=== PATIENT | female | born 1980 | race Caucasian/White ===

== ENCOUNTER 2017-04-01 16:06 | Emergency (ER) | payer OTHER ==
[2017-04-01 16:29] VITALS: BP 124/54; PULSE 60; TEMP 98.2; BMI 24.7
--- NOTE | 2017-04-01 18:59 | PDOC ---
History of Present Illness - General Chief Complaint: Headache Stated Complaint: HEADACHE Time Seen by Provider: 04/01/17 18:10 History Source: Patient Exam Limitations: No Limitations - History of Present Illness Initial Comments: 04/01/17 18:50 Patient is here with complaints of frontal and ethmoid sinus headache. Denies fever, denies any drainage from nose but has fullness and congestion. Has taken only Tylenol for relief of pain, and was concerned because it has not resolved. Denies knowledge of pollen ALLERGIES but thinks may have some relationship. Denies any runny nose or drainage from nose that's purulent, no cough, no sore throat pain, no one at home is sick. Is not a smoker Timing/Duration: reports: waxing and waning Severity: Yes: moderate Associated Symptoms: reports: denies symptoms, fever/chills Past History - Travel Traveled outside of the country in the last 30 days: No Close contact w/someone who was outside of country & ill: No - Past Medical History Allergies/Adverse Reactions: Allergies Allergy/AdvReac Type Severity Reaction Status Date / Time No Known Drug Allergies Allergy Verified 04/01/17 16:25 Home Medications: Ambulatory Orders Pnv95/Iron Fum/Folic Acid [ Caplet] 1 each PO DAILY 01/14/16 Ibuprofen [Motrin -] 600 mg PO TID #21 tablet 01/17/16 - Surgical History Abdominal Surgery: Yes (r/o Fibroid) - Reproductive History (#): 4 Para: 2 Therapeutic (s) & number: Yes (X 1) - Immunization History Immunization Up to Date: No - Psycho/Social/Smoking Cessation Hx Anxiety: No Suicidal Ideation: No Smoking Status: No Smoking History: Never smoked Have you smoked in the past 12 months: No Number of Cigarettes Smoked Daily: 0 Information on smoking cessation initiated: No Hx Alcohol Use: No Drug/Substance Use Hx: No Substance Use Type: Alcohol Hx Substance Use Treatment: No Review of Systems - Review of Systems Able to Perform ROS?: Yes Is the patient limited Belarusian proficient: Yes Constitutional: Yes: Symptoms Reported, See HPI, Malaise HEENTM: Yes: Symptoms Reported, See HPI, Eye Pain. No: Blurred Vision, Tearing Respiratory: Yes: Symptoms reported, See HPI : No: Symptoms Reported Musculoskeletal: Yes: Symptoms Reported All Other Systems: Reviewed and Negative *Physical Exam - Vital Signs Last Vital Signs Temp Pulse Resp BP Pulse Ox 98.2 F 60 18 124/54 100 04/01/17 16:27 04/01/17 16:27 04/01/17 16:27 04/01/17 16:27 04/01/17 16:27 - Physical Exam General Appearance: Yes: Nourished, Appropriately Dressed, Apparent Distress HEENT: positive: ALEX, Normal ENT Inspection, TMs Normal (ingested but landmarks easily visualized). negative: Pharynx Normal Neck: positive: Tender, Supple Respiratory/Chest: positive: Lungs Clear, Normal Breath Sounds Cardiovascular: positive: Regular Rate Gastrointestinal/Abdominal: positive: Soft. negative: Tender Musculoskeletal: positive: Normal Inspection Extremity: positive: Normal Capillary Refill, Normal Inspection Integumentary: positive: Normal Color, Dry Neurologic: positive: anime designer II-XII NML intact, Fully Oriented, Alert, Normal Mood/ Affect, Normal Response, Motor Strength 5/5 Progress Note - Progress Note Progress Note: Sinus congestion, no evidence of infection. Will treat with decongestants and antihistamines as is probably related to significant pollen currently. Will recommend follow-up with PMD or return for fevers, purulent drainage or worsened pain *DC/Admit/Observation/Transfer Diagnosis at time of Disposition: Allergic rhinitis Qualifiers: Allergic rhinitis trigger: other Allergic rhinitis seasonality: unspecified seasonality Qualified Code(s): J30.89 - Other allergic rhinitis - Discharge Dispostion Disposition: HOME Condition at time of disposition: Stable Admit: No - Patient Instructions Printed Discharge Instructions: DI for Allergic Rhinitis Additional Instructions: Rest, drink lots of fluids: Teas, water, soups Saltwater gargles. Consider humidifier in room at night Steamy showers/seem to face break up mucus Avoid contact with allergens, exposure to pollens, close windows on a windy day Lots of handwashing and good hygiene Continue [id number] medications for symptomatic relief- may use allergic eyedrops for itching I Continue antihistamines daily until pollen season is over; Zyrtec, Claritin, Thuy during the daytime and Benadryl at nighttime as will make sleepy Tylenol or Motrin for fever and pain Followup with private physician in one to 2 days as needed Consider following up with an taker off drying kiln/catalogue librarian for skin testing and possible allergy shots Return to emergency department for worsened symptoms, fevers, dehydration - Post Discharge Activity Work/School Note: Back to Work
== END 2017-04-01 19:43 | disposition home or self-care (01) ==
LOC: JERFT 16:06
DX: J30.89 Other allergic rhinitis (principal)
CPT/HCPCS: 84703; 99281-25

== ENCOUNTER 2017-06-08 10:03 | Emergency (ER) | payer OTHER ==
[2017-06-08 10:08] VITALS: BP 119/74; PULSE 87; TEMP 98.3; BMI 24.7
[2017-06-08 11:01] LABS: URINE APPEARANCE CLEAR; URINE BILIRUBIN NEGATIVE (NEGATIVE); URINE BLOOD NEGATIVE (NEGATIVE); URINE COLOR YELLOW; URINE GLUCOSE (UA) NEGATIVE (NEGATIVE); URINE KETONE NEGATIVE (NEGATIVE); URINE LEUK ESTERASE NEGATIVE (NEGATIVE); URINE NITRITE NEGATIVE (NEGATIVE); URINE PROTEIN NEGATIVE (NEGATIVE); URINE UROBILINOGEN NEGATIVE mg/dL (0.2-1.0)
--- NOTE | 2017-06-08 11:37 | PDOC ---
History of Present Illness - General Chief Complaint: Sore Throat Stated Complaint: THROAT PAIN (11 WKS ) Time Seen by Provider: 06/08/17 10:09 History Source: Patient Exam Limitations: No Limitations - History of Present Illness Initial Comments: 06/08/17 11:24 Patient is a 36 year old female, no significant medical history currently 11 weeks states that she has cough and cold-like symptoms, sore throat, mucus and phlegm, nasal congestion. Patient is afebrile. Denies fever. Past Medical History: Denies. Allergies: No known allergies Medications: vitamins Family History: Non-contributory Social History: Denies smoking, alcohol use, or IVDU Vital signs on arrival are notable for pulse of 96. Review of Systems GENERAL/CONSTITUTIONAL: No fever or chills. No weakness. No weight change. HEAD, EYES, EARS, NOSE AND THROAT: No change in vision. No ear pain or discharge. Sore throat. CARDIOVASCULAR: No chest pain or shortness of breath. RESPIRATORY: Nonproductive cough, no wheezing, or hemoptysis. GASTROINTESTINAL: No nausea, vomiting, diarrhea or constipation. No rectal bleeding. GENITOURINARY: No dysuria, frequency, or change in urination. MUSCULOSKELETAL: No joint or muscle swelling or pain. No neck or back pain. SKIN AND BREASTS: No rash or easy bruising. NEUROLOGIC: No headache, vertigo, loss of consciousness, or loss of sensation. PSYCHIATRIC: No depression or anxiety. ENDOCRINE: No increased thirst. No abnormal weight change. HEMATOLOGIC/LYMPHATIC: No anemia, easy bleeding, or history of blood clots. ALLERGIC/IMMUNOLOGIC: No hives or skin allergy. No latex allergy. Physical Exam: GENERAL: The patient is awake, alert, and fully oriented, in no acute distress. EYES: Pupils equal, round and reactive to light, extraocular movements intact, sclera anicteric, conjunctiva clear. ENT: Ears normal, nares patent, oropharynx clear without exudates. Moist mucous membranes. No uvula deviation NECK: Normal range of motion, supple without lymphadenopathy, JVD, or masses. LUNGS: Breath sounds equal, clear to auscultation bilaterally. No wheezes, and no crackles. HEART: Regular rate and rhythm, normal S1 and S2 without murmur, rub or gallop. ABDOMEN: Soft, nontender, normoactive bowel sounds. No guarding, no rebound. No masses. No bruising or abrasions MUSCULOSKELETAL: Normal range of motion, no edema. No clubbing or cyanosis. No cords, erythema, or tenderness. No CVA Tenderness with fist. NEUROLOGICAL: Cranial nerves II through XII grossly intact. Normal speech, normal gait. SKIN: Warm, Dry, normal turgor, no rashes or lesions noted. Past History - Past Medical History Allergies/Adverse Reactions: Allergies Allergy/AdvReac Type Severity Reaction Status Date / Time No Known Drug Allergies Allergy Verified 06/08/17 10:08 - Surgical History Abdominal Surgery: Yes (r/o Fibroid) - Reproductive History (#): 4 Para: 2 Therapeutic (s) & number: Yes (X 1) - Immunization History Immunization Up to Date: No - Psycho/Social/Smoking Cessation Hx Anxiety: No Suicidal Ideation: No Smoking Status: No Smoking History: Never smoked Have you smoked in the past 12 months: No Number of Cigarettes Smoked Daily: 0 Information on smoking cessation initiated: No Hx Alcohol Use: No Drug/Substance Use Hx: No Substance Use Type: Alcohol Hx Substance Use Treatment: No *Physical Exam - Vital Signs Last Vital Signs Temp Pulse Resp BP Pulse Ox 98.3 F 87 18 119/74 99 06/08/17 10:05 06/08/17 10:05 06/08/17 10:05 06/08/17 10:05 06/08/17 10:05 ED Treatment Course - ADDITIONAL ORDERS Additional order review: Laboratory Results 06/08/17 10:00 Urine Color Yellow Urine Appearance Clear Urine pH 5.0 D Urine Protein Negative Urine Glucose (UA) Negative Urine Ketones Negative Urine Blood Negative Urine Nitrite Negative Urine Bilirubin Negative Urine Urobilinogen Negative Ur Leukocyte Esterase Negative Medical Decision Making - Medical Decision Making 06/08/17 12:39 A/P: Patient here for evaluation of cough, sore throat, cough worse at night when she is trying to go to sleep. Rapid strep sent, patient has been afebrile. Rapid strep sent. Urine analysis sent. Patient was complaining of feeling febrile last evening however no urinary complaints. No vaginal discharge , no abdominal pain. No vaginal bleeding. Rapid strep is negative, UA is unremarkable. Laboratory Results - last 24 hr 06/08/17 10:00 Urine Color Yellow Urine Appearance Clear Urine pH 5.0 D Urine Protein Negative Urine Glucose (UA) Negative Urine Ketones Negative Urine Blood Negative Urine Nitrite Negative Urine Bilirubin Negative Urine Urobilinogen Negative Ur Leukocyte Esterase Negative Explained to patient she has common cold-like symptoms, even though she has symptoms greater than 1 week she states it appears to be getting better however cough still remains at night. Patient is nonseptic appearing, explained to patient that viral illness may take time to go away if any fever, increased productive cough, or any other concerns patient to return to ER as of now we will treat with supportive care. Increase fluids. May take Benadryl at night to decrease secretions and cough. Follow up with PMD tomorrow. Lungs are clear on reassessment O2 sats are 100% on room air. I discussed the physical exam findings, ancillary test results and final diagnoses with the patient. I answered all of the patient's questions. The patient was satisfied with the care received and felt comfortable with the discharge plan and treatment plan. The patient will call to arrange follow-up and will return to the Emergency Department with any new, persistent or worsening symptoms. *DC/Admit/Observation/Transfer Diagnosis at time of Disposition: Common cold - Discharge Dispostion Disposition: HOME Condition at time of disposition: Good Admit: No - Referrals Referrals: Pancho Omer [Primary Care Provider] - - Patient Instructions Printed Discharge Instructions: DI for Common Cold, Common Cold (Alternative Therapy) Additional Instructions: Por favor, aumente los lquidos para prevenir la deshidratacin. Los resultados de coleman laboratorio son negativos. Si los sntomas persisten lopez alexsandra semana, por favor, siga pu con MD Si alguna fiebre, tos productiva o alguna otra preocupacin regresan a la yazmin de emergencias. Esta es alexsandra enfermedad viral, porque usted est embarazada slo carmella tylenol segn sea necesario. Please increase fluids to prevent dehydration. Your lab results are negative. If symptoms persist for one week, please follow pu with MD If any fever, producive cough, or other concerns return to the ER. This is a viral illness, because you are only take tylenol as needed. - Post Discharge Activity Work/School Note: Back to Work
== END 2017-06-08 12:21 | disposition home or self-care (01) ==
LOC: JERFT 10:03
DX: O99.89 Other specified diseases and conditions complicating pregnancy, childbirth and the puerperium (principal); J00 Acute nasopharyngitis [common cold]; Z3A.11 11 weeks gestation of pregnancy
CPT/HCPCS: 81003; 87070; 87086; 87430; 99281-25

== ENCOUNTER 2017-07-28 06:53 | Emergency (ER) | payer OTHER ==
[2017-07-28 07:20] VITALS: BMI 26.4
[2017-07-28] MEDS ORDERED: SODIUM CHLORIDE 1,000 ML IV STA ×2 (07:37→09:34)
[2017-07-28] MEDS ORDERED: ACETAMINOPHEN 1000 MG/100 ML VIAL (NON FORMULARY) IVPB ONE (07:37)
[2017-07-28] MEDS ORDERED: METOCLOPRAMIDE HCL INJECTION 10 MG/2 ML VIAL IVPB ONE (07:37)
--- NOTE | 2017-07-28 07:38 | PDOC ---
History of Present Illness - General Chief Complaint: Headache Stated Complaint: HEADACHE Time Seen by Provider: 07/28/17 07:15 - History of Present Illness Initial Comments: 07/28/17 07:37 37 F, 18 wks , presents to ER with 2 days of DOVER. Pt states that she has a history of migraine headaches, and yesterday, she began to experience headache in the front of her forehead and around her eyes. Denies thunderclap. States that the pain gradually progressed, initially waxing and waning, before developing into a full migraine. She states that it is consistent in character and severity to her previous headaches. She took a benadryl last night to sleep but no pain medication. Pt denies F/C. Denies neck pain. Denies numbness/ weakness. Denies double vision. Pt is scheduled to see her Ob tomorrow for routine f/u. Denies abdominal pain. Denies vaginal discharge or bleeding. Denies dysuria. Past History - Past Medical History Allergies/Adverse Reactions: Allergies Allergy/AdvReac Type Severity Reaction Status Date / Time No Known Drug Allergies Allergy Verified 06/08/17 10:08 - Surgical History Abdominal Surgery: Yes (r/o Fibroid) - Reproductive History (#): 4 Para: 2 Therapeutic (s) & number: Yes (X 1) - Immunization History Immunization Up to Date: No - Psycho/Social/Smoking Cessation Hx Anxiety: No Suicidal Ideation: No Smoking Status: No Smoking History: Never smoked Have you smoked in the past 12 months: No Number of Cigarettes Smoked Daily: 0 Information on smoking cessation initiated: No Hx Alcohol Use: No Drug/Substance Use Hx: No Substance Use Type: Alcohol Hx Substance Use Treatment: No Review of Systems - Review of Systems Comments:: 07/28/17 07:42 "GENERAL/CONSTITUTIONAL: No fever or chills. No weakness. HEAD, EYES, EARS, NOSE AND THROAT: No change in vision. No ear pain or discharge. No sore throat. CARDIOVASCULAR: No chest pain or shortness of breath. RESPIRATORY: No cough, wheezing, or hemoptysis. GASTROINTESTINAL: No nausea, vomiting, diarrhea or constipation. GENITOURINARY: No dysuria, frequency, or change in urination. MUSCULOSKELETAL: No joint or muscle swelling or pain. No neck or back pain. SKIN: No rash NEUROLOGIC: + headache, no vertigo, loss of consciousness, or change in strength /sensation. ENDOCRINE: No increased thirst. No abnormal weight change. HEMATOLOGIC/LYMPHATIC: No anemia, easy bleeding, or history of blood clots. ALLERGIC/IMMUNOLOGIC: No hives or skin allergy. " *Physical Exam - Vital Signs Last Vital Signs Temp Pulse Resp BP Pulse Ox 98.7 F 93 H 20 124/78 100 07/28/17 07:17 07/28/17 07:17 07/28/17 07:17 07/28/17 07:17 07/28/17 07:17 - Physical Exam Comments: 07/28/17 07:42 "GENERAL: Awake, alert, and fully oriented, in no acute distress HEAD: No signs of trauma EYES: PERRLA, EOMI, sclera anicteric, conjunctiva clear ENT: Auricles normal inspection, hearing grossly normal, nares patent, oropharynx clear without exudates. Moist mucosa NECK: nontender,Normal ROM, supple, no lymphadenopathy, JVD, or masses LUNGS: Breath sounds equal, clear to auscultation bilaterally. No wheezes, and no crackles HEART: Regular rate and rhythm, normal S1 and S2, no murmurs, rubs or gallops ABDOMEN: Soft, gravid, nontender, normoactive bowel sounds. No guarding, no rebound. No masses EXTREMITIES: Normal range of motion, no edema. No clubbing or cyanosis. No cords, erythema, or tenderness NEUROLOGICAL: Cranial nerves II through XII intact. Visual rodriguez intact in all quadrants, EOMI, no nystagmus, cerebellar function normal, Normal speech, normal gait, 5/5 strength and sensation in all extremities SKIN: Warm, Dry, normal turgor, no rashes or lesions noted. " ED Treatment Course - LABORATORY CBC & Chemistry Diagram: 07/28/17 08:00 07/28/17 08:00 Medical Decision Making - Medical Decision Making 07/28/17 07:43 37 F, 18 wks , presenting with gradual onset bifrontal headache, consistent in character and severity with prior migraines. Pt with no neuro deficits to suggest acute intracranial process. No F/C to suggest infectious process. Pt with no abdominal complaints. Bedside US reveals FHR of 180 with normal movement. - Labs, UA - IVF, tylenol, reglan - reassess 07/28/17 10:53 Pt reassessed s/p IVF, tylenol, and reglan. Now feels significantly better. Labs unremarkable. Will DC home, pt to f/u with OB tomorrow. *DC/Admit/Observation/Transfer Diagnosis at time of Disposition: Headache - Discharge Dispostion Disposition: HOME Condition at time of disposition: Good Admit: No - Referrals Referrals: Pancho Omer [Primary Care Provider] - Allan Kahn MD [Staff Physician] - - Patient Instructions Printed Discharge Instructions: DI for Headache Additional Instructions: Follow up with your apparel manufacture instructor tomorrow as scheduled. You should see a neurologist for further evaluation of your headaches. Call the number provided to make an appointment with our neurology clinic. Siga con coleman gineclogo maana. Usted debe ir a un neurlogo para la evaluacin adicional de derian junior de christoph. Llame al nmero proporcionado para hacer alexsandra misa con nuestra clnica de neurologa. Print Language: BENGALI - Attestations Physician Attestion: 07/28/17 10:57 I, Dr. Diogenes Bess MD, attest that this document has been prepared under my direction and personally reviewed by me in its entirety. I further attest, that it accurately reflects all work, treatment, procedures and medical decision -making performed by me.
[2017-07-28] MEDS ORDERED: ACETAMINOPHEN INJECTION 100 ML IVPB ONE (07:45)
[2017-07-28] MEDS ORDERED: METOCLOPRAMIDE HCL INJECTION 10 MG/2 ML VIAL ONE (07:45)
[2017-07-28 08:20] LABS: BASOPHIL 0.9 % (0-2.0); EOSINOPHIL 0.4 % (0-4.5); MCH 31.1 pg (25.7-33.7); MCHC 33.7 g/dl (32.0-36.0); MEAN CELL VOLUME 92.5 fl (80-96); MEAN PLT VOLUME 8.9 fl (7.5-11.1); NEUTROPHILS 58.5 % (42.8-82.8); PLATELET COUNT 242 K/MM3 (134-434); RDW 14.1 % (11.6-15.6); WHITE BLOOD COUNT 6.3 K/mm3 (4.0-10.0)
[2017-07-28 08:23] LABS: URINE APPEARANCE CLEAR; URINE BILIRUBIN NEGATIVE (NEGATIVE); URINE BLOOD NEGATIVE (NEGATIVE); URINE COLOR STRAW; URINE GLUCOSE (UA) NEGATIVE (NEGATIVE); URINE KETONE NEGATIVE (NEGATIVE); URINE LEUK ESTERASE NEGATIVE (NEGATIVE); URINE NITRITE NEGATIVE (NEGATIVE); URINE PROTEIN NEGATIVE (NEGATIVE); URINE UROBILINOGEN NEGATIVE mg/dL (0.2-1.0)
[2017-07-28 08:36] LABS: ALBUMIN 3.4 g/dl (3.4-5.0); ALK PHOS 46 U/L (45-117); ANION GAP 8 (8-16); BILIRUBIN,TOTAL 0.3 mg/dL (0.2-1.0); CALCIUM 8.8 mg/dL (8.5-10.1); CO2 25 mmol/L (21-32); CREATININE 0.4 mg/dL (0.55-1.02); GLUCOSE,RANDOM 81 mg/dL (74-106); SGPT/ALT 32 U/L (12-78); TOT PROT 7.2 g/dl (6.4-8.2)
[2017-07-28 08:41] LABS: SGOT/AST 33 U/L (15-37)
[2017-07-28 11:32] VITALS: BP 116/65; PULSE 88; TEMP 98.4
== END 2017-07-28 11:10 | disposition home or self-care (01) ==
LOC: JER 06:53
PROC: 3E0337Z Introduction of Electrolytic and Water Balance Substance into Peripheral Vein, Percutaneous Approach (ICD-10-PCS; principal; 2017-07-28)
PROC: 3E033NZ Introduction of Analgesics, Hypnotics, Sedatives into Peripheral Vein, Percutaneous Approach (ICD-10-PCS; 2017-07-28)
PROC: 3E033GC Introduction of Other Therapeutic Substance into Peripheral Vein, Percutaneous Approach (ICD-10-PCS; 2017-07-28)
DX: O26.892 Other specified pregnancy related conditions, second trimester (principal); R51 Headache; Z3A.18 18 weeks gestation of pregnancy
CPT/HCPCS: 36415; 80053; 81003; 85025; 96361; 96374; 96375; 99282-25

== ENCOUNTER 2017-12-20 17:55 | Inpatient (IN) | payer OTHER ==
[2017-12-20] MEDS: ELECTROLYTE-148 SOLN 1,000 ML IV SCH ×2 (19:30→21:30)
[2017-12-20 19:38] VITALS: BMI 31.2
[2017-12-20 20:23] LABS: BASO % 0.2 % (0-2.0); EOS % 0.2 % (0-4.5); HEMATOCRIT 38.4 % (32.4-45.2); HEMOGLOBIN 12.6 GM/dL (10.7-15.3); MCH 31.5 pg (25.7-33.7); MCHC 32.8 g/dl (32.0-36.0); MEAN CELL VOLUME 95.8 fl (80-96); MEAN PLT VOLUME 9.8 fl (7.5-11.1); MONO % 9.3 % (3.8-10.2); NEUT % 66.3 % (42.8-82.8); PLATELET COUNT 219 K/MM3 (134-434); RBC 4.01 M/mm3 (3.60-5.2); RDW 13.6 % (11.6-15.6); WHITE BLOOD COUNT 5.7 K/mm3 (4.0-10.0)
[2017-12-20 20:55] LABS: INR 0.95 (0.82-1.09); PROTHROMBIN TIME (PATIENT) 10.7 SEC (9.98-11.88)
[2017-12-20 20:59] LABS: ACTIVATED PTT 27.7 SECONDS (26.9-34.4)
[2017-12-20 21:02] LABS: ANION GAP 11 (8-16); BLOOD UREA NITROGEN 6 mg/dL (7-18); CALCIUM 8.2 mg/dL (8.5-10.1); CHLORIDE 105 mmol/L (98-107); CO2 22 mmol/L (21-32); CREATININE 0.4 mg/dL (0.55-1.02); GLUCOSE,RANDOM 62 mg/dL (74-106); POTASSIUM 4.3 mmol/L (3.5-5.1); SODIUM 138 mmol/L (136-145)
--- NOTE | 2017-12-20 21:57 | HP ---
Past Medical History - Admission Chief Complaint: Labor pain History of Present Illness: 37 yo @ 38.2 weeks gestation, EDC 01/01/18, presents to L&D c/o labor pain. She had 2 previous . She's admitted for repeat . History Source: Patient Limitations to Obtaining History: No Limitations - Past Medical History ...: 7 ...Para: 2 ...Term: 2 ...: 0 ...Spon : 4 ...Induced : 0 ...Multiple Gestation: 0 ...LMP: 04/01/17 ... Weeks Gestation by Dates: 37.4 ...EDC by Dates: 01/06/18 ...EDC by Sono: 01/01/18 - Past Surgical History Past Surgical History: Yes: Hx Myomectomy: No Hx Transabdominal Cerclage: No - Smoking History Smoking history: Never smoked Have you smoked in the past 12 months: No Aproximately how many cigarettes per day: 0 - Alcohol/Substance Use Hx Alcohol Use: No History of Substance Use: reports: None - Social History Usual Living Arrangement: Yes: With Significant Other History of Recent Travel: No Home Medications - Allergies Allergies/Adverse Reactions: Allergies Allergy/AdvReac Type Severity Reaction Status Date / Time No Known Drug Allergies Allergy Verified 06/08/17 10:08 - Home Medications Home Medications: Ambulatory Orders Vit 93/Iron Fum/Folic [ Formula Tablet] 1 each PO DAILY Family Disease History - Family Disease History Family History: Unremarkable Review of Systems - Review of Systems Constitutional: reports: No Symptoms Eyes: reports: No Symptoms HENT: reports: No Symptoms Neck: reports: No Symptoms Cardiovascular: reports: No Symptoms Respiratory: reports: No Symptoms Gastrointestinal: reports: No Symptoms Genitourinary: reports: Pain Breasts: reports: No Symptoms Reported Musculoskeletal: reports: No Symptoms Integumentary: reports: No Symptoms Neurological: reports: No Symptoms Endocrine: reports: No Symptoms Hematology/Lymphatic: reports: No Symptoms Psychiatric: reports: No Symptoms Pain Intensity: 5 Physical Exam - Maternity Vital Signs: Vital Signs Temperature 98.9 F 12/20/17 18:39 Pulse Rate 120 H 12/20/17 18:39 Respiratory Rate 20 12/20/17 18:39 Blood Pressure 119/76 12/20/17 18:39 O2 Sat by Pulse Oximetry (%) Constitutional: Yes: Well Nourished Eyes: Yes: Conjunctiva Clear HENT: Yes: Atraumatic Neck: Yes: Supple Cardiovascular: Yes: Regular Rate and Rhythm Lungs: Clear to auscultation - Abdominal Exam/OB Number of Fetuses: Single Presentation: Vertex - Vaginal Exam/OB Dilatation (cm): 1 Amniotic Membrane Status: Intact Station: -2 - Physical Exam ...Motor Strength: WNL Psychiatric: Yes: Alert, Oriented - Labs Lab Results: CBC, BMP 12/20/17 20:00 12/20/17 20:00 Problem List - Problems (1) Previous section complicating , antepartum condition or complication Code(s): O34.219 - MATERNAL CARE FOR UNSP TYPE SCAR FROM PREVIOUS DEL Assessment/Plan Previous in labor Admit for repeat Consent signed Anesthesia to see patient
[2017-12-20] MEDS ORDERED: CITRIC ACID/SODIUM CITRATE 30 ML UNIT-DOSE CUP PO ONE (22:00)
[2017-12-20] MEDS ORDERED: morphine SULFATE/Preservative Free 0.5 MG/ML (1cc Syringe) ONE (22:09)
[2017-12-20] MEDS ORDERED: IBUPROFEN 600 MG TABLET (FP) PO PRN (22:27)
[2017-12-20] MEDS ORDERED: ONDANSETRON 4 MG/2 ML VIAL IVPUSH PRN (22:27)
[2017-12-20] MEDS ORDERED: OXYTOCIN 10 UNITS/ML VIAL ONE ×4 (23:05)
[2017-12-20] MEDS ORDERED: ceFAZolin SODIUM 1 GM VIAL ONE (23:05)
[2017-12-20] MEDS ORDERED: KETOROLAC TROMETHAMINE 30 MG/1 ML VIAL ONE (23:05)
[2017-12-20] MEDS ORDERED: METHYLERGONOVINE MALEATE 0.2 MG/1 ML AMP IM PRN (23:12)
[2017-12-20] MEDS ORDERED: IBUPROFEN 800 MG/8 ML IJ IVPB PRN (23:12)
--- NOTE | 2017-12-20 23:15 | OP ---
Operative Note - Note: Operative Date: 12/20/17 Pre-Operative Diagnosis: Previous in labor Operation: Repeat Findings: Baby in OP position Post-Operative Diagnosis: Same as Pre-op Surgeon: Amee Young Neck Fitter: Billy Goins Anesthesia: Spinal Specimens Removed: Placenta Estimated Blood Loss (mls): 600 Operative Report Dictated: Yes
[2017-12-21] MEDS ORDERED: OXYTOCIN 20 UNITS in 0.9% NS 20 UNIT/1,000 ML INFUS.BAG IV ONE (00:32)
[2017-12-21] MEDS: OXYTOCIN 20 UNITS in 0.9% NS 20 UNIT/1,000 ML INFUS.BAG IV SCH ×2 (00:35→23:35)
[2017-12-21 06:13] LABS: BASO % 0.1 % (0-2.0); EOS % 0.2 % (0-4.5); HEMATOCRIT 34.7 % (32.4-45.2); HEMOGLOBIN 11.6 GM/dL (10.7-15.3); LYMPH % 15.7 % (8-40); MCHC 33.3 g/dl (32.0-36.0); MEAN CELL VOLUME 96.2 fl (80-96); MEAN PLT VOLUME 9.5 fl (7.5-11.1); MONO % 7.2 % (3.8-10.2); NEUT % 76.8 % (42.8-82.8); PLATELET COUNT 202 K/MM3 (134-434); RBC 3.61 M/mm3 (3.60-5.2); RDW 13.6 % (11.6-15.6); WHITE BLOOD COUNT 8.9 K/mm3 (4.0-10.0)
[2017-12-21] MEDS: PRENATAL VITAMINS W/ FOLIC ACID TABLET (FP) PO SCH (09:40)
[2017-12-21] MEDS: FERROUS SO4 325 MG TABLET (FP) PO SCH ×2 (09:40→17:30)
--- NOTE | 2017-12-21 10:08 | PN ---
Progress Note (short form) - Note Progress Note: Post op day#1.S/p C Section under spinal anesthesia with duramorph uneventful.Patient stable and c/o little pain for which she is on medication.No any anesthesia related problem.Patient Dc from the anesthesia care.
--- NOTE | 2017-12-21 10:12 | PN ---
Post Progress Note - Subjective Subjective: 37 yo Para 3 status post repeat , seen and evaluated. Doing well. Post Day: 1 Type of Delivery: Repeat C/S Vital Signs: Vital Signs Temperature 99.0 F 12/21/17 06:00 Pulse Rate 70 12/21/17 06:00 Respiratory Rate 20 12/21/17 09:44 Blood Pressure 110/70 12/21/17 06:00 O2 Sat by Pulse Oximetry (%) 100 12/21/17 00:30 Breast Exam: Yes: Soft Uterus: Yes: Fundus Firm Incision: Yes: Dressing dry and intact Abdomen/GI: Yes: Abdomen soft, Tolerating PO Lochia: Yes: Rubra Lochia, amount: Small Extremities: Yes: Calves non-tender Perineum: Yes: Intact Activity: Ambulating - Labs Labs: CBC WBC 8.9 K/mm3 (4.0-10.0) D 12/21/17 05:50 RBC 3.61 M/mm3 (3.60-5.2) 12/21/17 05:50 Hgb 11.6 GM/dL (10.7-15.3) 12/21/17 05:50 Hct 34.7 % (32.4-45.2) 12/21/17 05:50 MCV 96.2 fl (80-96) H 12/21/17 05:50 MCH 32.0 pg (25.7-33.7) 12/21/17 05:50 MCHC 33.3 g/dl (32.0-36.0) 12/21/17 05:50 RDW 13.6 % (11.6-15.6) 12/21/17 05:50 Plt Count 202 K/MM3 (134-434) 12/21/17 05:50 MPV 9.5 fl (7.5-11.1) 12/21/17 05:50 Neutrophils % 76.8 % (42.8-82.8) 12/21/17 05:50 Lymphocytes % 15.7 % (8-40) D 12/21/17 05:50 Monocytes % 7.2 % (3.8-10.2) 12/21/17 05:50 Eosinophils % 0.2 % (0-4.5) 12/21/17 05:50 Basophils % 0.1 % (0-2.0) 12/21/17 05:50 Problem List - Problems (1) Previous section complicating , antepartum condition or complication Code(s): O34.219 - MATERNAL CARE FOR UNSP TYPE SCAR FROM PREVIOUS DEL (2) Status post repeat low transverse section Code(s): Z98.891 - HISTORY OF UTERINE SCAR FROM PREVIOUS SURGERY Assessment/Plan Status post repeat Stable Analgesia as needed Continue routine post op care
[2017-12-21] MEDS: SIMETHICONE 80 MG TAB.CHEW (FP) PO PRN ×3 (11:45→21:30)
[2017-12-21] MEDS: ACETAMINOPHEN 325 MG TABLET (FP) PO PRN ×3 (11:46→21:30)
[2017-12-21] MEDS: IBUPROFEN 600 MG TABLET (FP) PO PRN ×3 (11:47→21:31)
[2017-12-21] MEDS ORDERED: BISACODYL 10 MG SUPP.RECT RC PRN (23:12)
[2017-12-22] MEDS: ACETAMINOPHEN 325 MG TABLET (FP) PO PRN ×3 (00:19→13:48)
[2017-12-22] MEDS: SIMETHICONE 80 MG TAB.CHEW (FP) PO PRN ×4 (00:19→22:17)
[2017-12-22] MEDS: oxyCODONE HCL 5 MG TABLET PO PRN ×4 (00:19→22:17)
[2017-12-22] MEDS: FERROUS SO4 325 MG TABLET (FP) PO SCH ×2 (08:35→17:15)
[2017-12-22] MEDS: PRENATAL VITAMINS W/ FOLIC ACID TABLET (FP) PO SCH (09:50)
--- NOTE | 2017-12-22 10:15 | PN ---
Post Progress Note - Subjective Subjective: c/o pain scale 9/10 voiding without difficulty Post Day: 2 Type of Delivery: Repeat C/S Vital Signs: Vital Signs Temperature 98.7 F 12/22/17 08:41 Pulse Rate 90 12/22/17 08:41 Respiratory Rate 20 12/22/17 08:41 Blood Pressure 116/76 12/22/17 08:41 O2 Sat by Pulse Oximetry (%) 100 12/21/17 00:30 Breast Exam: Yes: Soft, Other (BF ). No: Engorged Uterus: Yes: Fundus Firm, Fundus below umbilicus, Non-tender Incision: Yes: Sutures intact (steri strips in situ ). No: Redness, Oozing Abdomen/GI: Yes: Abdomen soft, Tender, Passing flatus, Tolerating PO (diet ). No: Abdominal Distention Lochia: Yes: Rubra Lochia, amount: Moderate Extremities: Yes: Calves non-tender Perineum: Yes: Intact Activity: Ambulating - Labs Labs: CBC WBC 8.9 K/mm3 (4.0-10.0) D 12/21/17 05:50 RBC 3.61 M/mm3 (3.60-5.2) 12/21/17 05:50 Hgb 11.6 GM/dL (10.7-15.3) 12/21/17 05:50 Hct 34.7 % (32.4-45.2) 12/21/17 05:50 MCV 96.2 fl (80-96) H 12/21/17 05:50 MCH 32.0 pg (25.7-33.7) 12/21/17 05:50 MCHC 33.3 g/dl (32.0-36.0) 12/21/17 05:50 RDW 13.6 % (11.6-15.6) 12/21/17 05:50 Plt Count 202 K/MM3 (134-434) 12/21/17 05:50 MPV 9.5 fl (7.5-11.1) 12/21/17 05:50 Neutrophils % 76.8 % (42.8-82.8) 12/21/17 05:50 Lymphocytes % 15.7 % (8-40) D 12/21/17 05:50 Monocytes % 7.2 % (3.8-10.2) 12/21/17 05:50 Eosinophils % 0.2 % (0-4.5) 12/21/17 05:50 Basophils % 0.1 % (0-2.0) 12/21/17 05:50 Assessment/Plan stable plan ct po care
[2017-12-22] MEDS: IBUPROFEN 600 MG TABLET (FP) PO PRN ×2 (17:15→22:18)
[2017-12-23] MEDS: IBUPROFEN 600 MG TABLET (FP) PO PRN ×2 (03:31→08:33)
[2017-12-23] MEDS: SIMETHICONE 80 MG TAB.CHEW (FP) PO PRN ×2 (03:31→08:34)
[2017-12-23] MEDS: oxyCODONE HCL 5 MG TABLET PO PRN ×2 (03:31→08:34)
[2017-12-23 08:18] LABS: BASO % 0.7 % (0-2.0); HEMATOCRIT 31.8 % (32.4-45.2); HEMOGLOBIN 10.2 GM/dL (10.7-15.3); LYMPH % 21.2 % (8-40); MCH 31.3 pg (25.7-33.7); MCHC 32.1 g/dl (32.0-36.0); MEAN CELL VOLUME 97.6 fl (80-96); MEAN PLT VOLUME 9.1 fl (7.5-11.1); MONO % 6.5 % (3.8-10.2); NEUT % 67.6 % (42.8-82.8); PLATELET COUNT 215 K/MM3 (134-434); RBC 3.26 M/mm3 (3.60-5.2); RDW 13.9 % (11.6-15.6); WHITE BLOOD COUNT 9.3 K/mm3 (4.0-10.0)
[2017-12-23] MEDS: FERROUS SO4 325 MG TABLET (FP) PO SCH (08:33)
[2017-12-23 09:30] VITALS: BP 115/69; PULSE 93; TEMP 98
--- NOTE | 2017-12-23 09:38 | DS ---
Physical Exam-SENIOR BUDGET ANALYST Vital Signs: Vital Signs Temperature 98 F 12/23/17 09:27 Pulse Rate 93 H 12/23/17 09:27 Respiratory Rate 20 12/23/17 09:27 Blood Pressure 115/69 12/23/17 09:27 O2 Sat by Pulse Oximetry (%) 100 12/21/17 00:30 Constitutional: Yes: Well Nourished Eyes: Yes: Conjunctiva Clear HENT: Yes: Atraumatic Neck: Yes: Supple Cardiovascular: Yes: Regular Rate and Rhythm Respiratory: Yes: Regular Gastrointestinal: Yes: Normal Bowel Sounds External Genitalia: Yes: Normal Vaginal Exam: Yes: Normal Cervix: Yes: Normal Uterus: Yes: Firm Wound/Incision: Yes: Well Approximated, Steri Strips (in place) Neurological: Yes: Alert, Oriented Psychiatric: Yes: Alert, Oriented Labs: CBC, BMP 12/23/17 07:30 12/20/17 20:00 Delivery - Delivery Type of Anesthesia: Spinal Episiotomy/Laceration: None EBL (cc): 600 Delivery, Single - Stages of Labor Date 1st Stage Initiatied: 12/20/17 Time 1st Stage Initiated: 17:00 Date of Delivery: 12/20/17 Time of Delivery: 22:32 Time Placenta Delivered: 22:33 - Condition of Balancer Scale/College Dean Present: Yes Name: Fitz Mendoza Infant Gender: Female Weight: 6 lb 3 oz Position: OP - 1 Minute Total Score: 9 5 Minutes Total Score: 9 - Feeding Plan Initial Plan: Elected not to breastfeed exclusively throughout hospitalization Discharge Summary Reason For Visit: SECTION Current Active Problems Previous section complicating , antepartum condition or complication (Acute) Status post repeat low transverse section (Acute) Procedures: Principal: Repeat Low Transverse Hospital Course: Routine Post op care Condition: Good - Instructions Diet, Activity, Other Instructions: Regular diet No driving, no lifting x 4 weeks F/U in clinic in 2 weeks Disposition: HOME - Home Medications Comprehensive Discharge Medication List: Ambulatory Orders Vit 93/Iron Fum/Folic [ Formula Tablet] 1 each PO DAILY
[2017-12-23] MEDS: PRENATAL VITAMINS W/ FOLIC ACID TABLET (FP) PO SCH (10:21)
--- NOTE | 2017-12-24 14:47 | PATH ---
Surgical Pathology Report Patient Name: MAHENDRA VILA Med. Rec. #: [id number] /Age/Gender: 1980 (Age: 37) / F Account: [id number] Location: [facility] OBS/MA[facility] Taken: 12/20/2017 Received: 12/21/2017 Reported: 12/24/2017 Physicians: Amee Young M.D. Specimen(s) Received PLACENTA Clinical History , history of two C-sections, 4 SPAB Final Diagnosis PLACENTA, DELIVERY: SMALL (386 GRAM), FOCALLY DISRUPTED THIRD TRIMESTER PLACENTA WITH 3 VESSEL UMBILICAL CORD AND UNREMARKABLE PLACENTAL MEMBRANES. Electronically Signed Eddi Pereyra M.D. Gross Description The specimen is received fresh labeled placenta and is a 386 gram, 17.5 x 16.0 x 2.0 cm. placenta with attached membranes and umbilical cord. The attached membranes are bosch, translucent with focal opacities and insert marginally. The umbilical cord measures 28 cm. in length and averages 1.2 cm. in diameter. The cord inserts eccentrically, 5 cm. to the nearest margin. No true knots or strictures are identified. Cut surface of the umbilical cord reveals 3 vessels. The surface is caldera-blue with minimal fibrin deposition and appropriate caliber vessels. The maternal surface is red-brown with focal defects. Sectioning reveals red-brown, spongy parenchyma. No lesions are identified. Medical Nurse sections are submitted in three cassettes as follows: 1- membrane rolls and umbilical cord; 2-3- full thickness sections of placenta. saudi/12/23/2017
== END 2017-12-23 12:50 | disposition home or self-care (01) | DRG 540 ==
LOC: JDEL 17:55 → JLDR 19:10 → J3W 12-21 01:13
PROVIDERS: ADMIT Obstetrics & Gynecology; ATTEND Obstetrics & Gynecology
PROC: 10D00Z1 Extraction of Products of Conception, Low, Open Approach (ICD-10-PCS; principal; 2017-12-20)
DX: O34.211 Maternal care for low transverse scar from previous cesarean delivery (principal); Z3A.38 38 weeks gestation of pregnancy; Z37.0 Single live birth
CPT/HCPCS: 36415; 59025; 80048; 85025; 85610; 85730; 86593; 86850; 86900; 86901; 88307-TC

== ENCOUNTER 2018-06-10 19:16 | Emergency (ER) | payer OTHER ==
--- NOTE | 2018-06-10 19:31 | PDOC ---
Rapid Medical Evaluation Time Seen by Provider: 06/10/18 19:26 Medical Evaluation: Allergies Allergy/AdvReac Type Severity Reaction Status Date / Time No Known Drug Allergies Allergy Verified 06/08/17 10:08 06/10/18 19:26 Pt presents with upper back pain, neck pain and L arm pain for 4 days. Pt has taken tylenol, motrin with no relief. Denies chest pain Exam: TTP L upper neck, Full ROM. VSS, ambulatory Orders: Nothing Pt to proceed to ED for further evaluation Discharge Disposition - Diagnosis Upper back pain on left side - Referrals - Patient Instructions - Post Discharge Activity
[2018-06-10 19:36] VITALS: BP 144/78; PULSE 73; TEMP 98.3; BMI 27.3
[2018-06-10] MEDS ORDERED: KETOROLAC TROMETHAMINE 60 MG/2 ML VIAL IM ONE (19:50)
[2018-06-10] MEDS ORDERED: KETOROLAC TROMETHAMINE 60 MG/2 ML VIAL ONE (19:53)
--- NOTE | 2018-06-10 19:56 | PDOC ---
History of Present Illness - General Chief Complaint: Pain, Acute Stated Complaint: BACK PAIN Time Seen by Provider: 06/10/18 19:26 History Source: Patient Exam Limitations: Clinical Condition - History of Present Illness Initial Comments: 06/10/18 19:51 Patient with no significant past medical history presenting with complain of pain to left side of neck and left shoulder after sleeping on the shoulder 4 days ago. Patient reports she woke up 3 days ago with pain in the shoulder and neck and has not been improving with [id number] Tylenol or Motrin. Denies headache, trauma to area, tingling or numbness sensation. Denies any other symptoms Timing/Duration: other (3 days) Past History - Past Medical History Allergies/Adverse Reactions: Allergies Allergy/AdvReac Type Severity Reaction Status Date / Time No Known Drug Allergies Allergy Verified 06/08/17 10:08 Home Medications: Ambulatory Orders Methocarbamol [Robaxin -] 500 mg PO BID PRN #14 tablet 06/10/18 Naproxen 500 mg PO BID PRN #20 tablet. 06/10/18 Asthma: No Cancer: No Cardiac Disorders: No COPD: No Diabetes: No HTN: No Seizures: No Thyroid Disease: No - Surgical History Abdominal Surgery: Yes (r/o Fibroid) - Reproductive History (#): 4 Para: 2 Therapeutic (s) & number: Yes (X 1) Spontaneous : 4 - Immunization History Immunization Up to Date: No - Suicide/Smoking/Psychosocial Hx Smoking Status: No Smoking History: Never smoked Have you smoked in the past 12 months: No Number of Cigarettes Smoked Daily: 0 Information on smoking cessation initiated: No Hx Alcohol Use: Yes (socially) Drug/Substance Use Hx: No Substance Use Type: Alcohol Hx Substance Use Treatment: No Review of Systems - Review of Systems Able to Perform ROS?: Yes Is the patient limited Ghanaian proficient: No Constitutional: No: Chills, Diaphoresis, Fever, Loss of Appetite, Malaise, Night Sweats, Weakness, Weight Stable, Unintentional Wgt. Loss, Unexplained wgt Loss, Other HEENTM: No: Eye Pain, Blurred Vision, Tearing, Recent change in vision, Double Vision, Cataracts, Ear Pain, Ocular Prothesis, Ear Discharge, Nose Pain, Nose Congestion, Tinnitus, Nose Bleeding, Hearing Loss, Throat Pain, Throat Swelling , Mouth Pain, Dental Problems, Difficulty Swallowing, Mouth Swelling, Other Respiratory: No: Cough, Orthopnea, Shortness of Breath, SOB with Exertion, SOB at Rest, Stridor, Wheezing, Productive cough, Hemoptysis, Other Cardiac (ROS): No: Chest Pain, Edema, Irregular Heart Rate, Lightheadedness, Palpitations, Syncope, Chest Tightness, Other ABD/GI: No: Abdominal Distended, Abd. Pain w/ defecation, Blood Streaked Bowels , Constipated, Diarrhea, Difficulty Swallowing, Nausea, Poor Appetite, Poor Fluid Intake, Rectal Bleeding, Vomiting, Indigestion, Abdominal cramping, Tarry Stools, Other Musculoskeletal: Yes: Joint Pain (left shoulder), Muscle Pain (left side of neck ), Neck Pain (left side). No: Joint Swelling, Muscle Weakness, Joint Stiffness Neurological: No: Headache, Numbness, Paresthesia, Pre-Existing Deficit, Seizure , Tingling, Tremors, Weakness, Unsteady Gait, Ataxia, Dizziness, Other All Other Systems: Reviewed and Negative *Physical Exam - Vital Signs Last Vital Signs Temp Pulse Resp BP Pulse Ox 98.3 F 73 16 144/78 98 06/10/18 19:28 06/10/18 19:28 06/10/18 19:28 06/10/18 19:28 06/10/18 19:28 - Physical Exam Comments: 06/10/18 19:53 GENERAL: Well developed, well nourished. Awake and alert. No acute distress. HEENT: Normocephalic, atraumatic. PERRLA, EOMI. No conjunctival pallor. Sclera are non- icteric. Moist mucous membranes. Oropharynx is clear. NECK: Supple. Full ROM. No JVD. Carotid pulses 2+ and symmetric, without bruits. No thyromegaly. No lymphadenopathy. CARDIOVASCULAR: Regular rate and rhythm. No murmurs, rubs, or gallops. Distal pulses are 2+ and symmetric. PULMONARY: No evidence of respiratory distress. Lungs clear to auscultation bilaterally. No wheezing, rales or rhonchi. ABDOMINAL: Soft. Non-tender. Non-distended. No rebound or guarding. No organomegaly. Normoactive bowel sounds. MUSCULOSKELETAL : Mild tenderness over paracervical muscle C4-C7 left side. Mild tenderness over left AC joint and deltoid muscles of left shoulder. Free range of motion of neck and shoulder. 5 out of 5 strength to left shoulder and upper arm. EXTREMITIES: No cyanosis. No clubbing. No edema. No calf tenderness. SKIN: Warm and dry. Normal capillary refill. No rashes. No jaundice. NEUROLOGICAL: Alert, awake, appropriate. Cranial nerves 2-12 intact. No deficits to light touch and temperature in face, upper extremities and lower extremities. No motor deficits in the in face, upper extremities and lower extremities. Normoreflexic in the upper and lower extremities. Normal speech. Toes are down- going bilaterally. Gait is normal without ataxia. PSYCHIATRIC: Cooperative. Good eye contact. Appropriate mood and affect. General Appearance: Yes: Nourished, Appropriately Dressed. No: Apparent Distress Medical Decision Making - Medical Decision Making 06/10/18 19:54 Patient with no significant past medical history presenting with complain of left shoulder and left-sided neck pain after sleeping on the left side of the shoulder. Symptoms likely neck and shoulder strain. Patient will be given Toradol 60 mg IM for pain. Patient discharged home on NSAIDs or muscle relaxer with orthopedics follow-up as needed *DC/Admit/Observation/Transfer Diagnosis at time of Disposition: Upper back pain on left side Neck muscle strain Qualifiers: Encounter type: initial encounter Qualified Code(s): S16.1XXA - Strain of muscle, fascia and tendon at neck level, initial encounter Sprain of shoulder, left Qualifiers: Encounter type: initial encounter Shoulder sprain type: unspecified sprain Qualified Code(s): S43.402A - Unspecified sprain of left shoulder joint, initial encounter - Discharge Dispostion Disposition: HOME Condition at time of disposition: Good Decision to Admit order: No - Prescriptions Prescriptions: Methocarbamol [Robaxin -] 500 mg PO BID PRN #14 tablet PRN Reason: neck and shoulder pain Naproxen 500 mg PO BID PRN #20 tablet.dr MAGALLON Reason: neck and shoulder pain - Referrals Referrals: Rip Zimmer MD [Staff Physician] - - Patient Instructions Printed Discharge Instructions: Shoulder Tendinopathy, Neck Pain (Alternative Therapy) Additional Instructions: take medication as prescribed as needed for pain. apply heat therapy to shoulder and neck area 2-3 times / day for 5-10mins until symptoms resolves. follow-up with orthopedics if no improvement in 5 days Print Language: LIBERIAN - Post Discharge Activity
== END 2018-06-10 20:11 | disposition home or self-care (01) ==
LOC: JERFT 19:16
PROC: 3E0233Z Introduction of Anti-inflammatory into Muscle, Percutaneous Approach (ICD-10-PCS; principal; 2018-06-10)
DX: S16.1XXA Strain of muscle, fascia and tendon at neck level, initial encounter (principal); S43.402A Unspecified sprain of left shoulder joint, initial encounter; X50.1XXA Overexertion from prolonged static or awkward postures, initial encounter; Y93.84 Activity, sleeping; Y92.032 Bedroom in apartment as the place of occurrence of the external cause
CPT/HCPCS: 96372; 99281-25

== ENCOUNTER 2020-10-07 05:50 | Inpatient (IN) | payer OTHER ==
[2020-10-07] MEDS ORDERED: ELECTROLYTE-148 SOLN 500 ML IV ONE ×2 (06:00→08:34)
[2020-10-07] MEDS ORDERED: ELECTROLYTE-148 SOLN 1,000 ML IV SCH (06:00)
[2020-10-07] MEDS ORDERED: CITRIC ACID/SODIUM CITRATE 30 ML UNIT-DOSE CUP PO ONE (06:00)
[2020-10-07 06:40] VITALS: BMI 34.2
[2020-10-07] MEDS ORDERED: morphine SULFATE/PF 0.5 MG/ML (2cc Syringe - QUVA) ONE (08:10)
[2020-10-07] MEDS ORDERED: PROPOFOL 20 ML ONE (08:10)
[2020-10-07] MEDS ORDERED: SUCCINYLCHOLINE CHLORIDE 200 MG/10 ML SYRINGE ONE (08:10)
[2020-10-07] MEDS ORDERED: ePHEDrine SULFATE 50 MG/1 ML AMPULE ONE (08:12)
[2020-10-07] MEDS ORDERED: METHYLERGONOVINE MALEATE 0.2 MG/1 ML AMP IM PRN (09:18)
[2020-10-07] MEDS ORDERED: oxyCODONE HCL 5 MG TABLET PO PRN (09:18)
[2020-10-07] MEDS ORDERED: WITCH HAZEL 50% (TUCKS) 40 PAD/JAR PAD TP PRN (09:18)
[2020-10-07] MEDS ORDERED: OXYTOCIN 10 UNITS/ML VIAL ONE (09:24)
[2020-10-07] MEDS: OXYTOCIN 20 UNITS in 0.9% NS 20 UNIT/1,000 ML INFUS.BAG IV SCH (09:30)
[2020-10-07] MEDS ORDERED: ONDANSETRON 4 MG/2 ML VIAL IVPUSH PRN (09:35)
[2020-10-07] MEDS ORDERED: morphine SULFATE/PF 0.5 MG/ML (2cc Syringe - QUVA) EP ONE (09:35)
[2020-10-07] MEDS: FERROUS SO4 325 MG TABLET (FP) PO SCH ×2 (12:33→22:25)
[2020-10-07] MEDS: PRENATAL VITAMINS W/ FOLIC ACID TABLET (FP) PO SCH (12:33)
[2020-10-07] MEDS: IBUPROFEN 800 MG/8 ML IJ IVPB PRN (13:11)
[2020-10-07] MEDS: ELECTROLYTE-148 SOLN 1,000 ML IV SCH (13:38)
[2020-10-08] MEDS: IBUPROFEN 800 MG/8 ML IJ IVPB PRN (03:34)
[2020-10-08 08:10] LABS: BASO % 0.6 % (0-2.0); EOS % 1.7 % (0-4.5); HEMATOCRIT 23.4 % (32.4-45.2); HEMOGLOBIN 7.6 GM/dL (10.7-15.3); LYMPH % 17.9 % (8-40); MCH 31.1 pg (25.7-33.7); MCHC 32.6 g/dl (32.0-36.0); MEAN CELL VOLUME 95.3 fl (80-96); MEAN PLT VOLUME 9.8 fl (7.5-11.1); MONO % 9.2 % (3.8-10.2); NEUT % 70.6 % (42.8-82.8); PLATELET COUNT 142 K/MM3 (134-434); RBC 2.45 M/mm3 (3.60-5.2); RDW 13.9 % (11.6-15.6); WHITE BLOOD COUNT 5.2 K/mm3 (4.0-10.0)
[2020-10-08] MEDS ORDERED: BISACODYL 10 MG SUPP.RECT RC PRN (09:18)
[2020-10-08] MEDS: ELECTROLYTE-148 SOLN 1,000 ML IV SCH (09:28)
[2020-10-08] MEDS: FERROUS SO4 325 MG TABLET (FP) PO SCH ×2 (09:36→22:21)
[2020-10-08] MEDS: PRENATAL VITAMINS W/ FOLIC ACID TABLET (FP) PO SCH (09:36)
[2020-10-08] MEDS ORDERED: FLU VACCINE (FLULAVAL) PF 60 MCG/0.5 ML SYRINGE 2020-2021 IM ONE (10:00)
[2020-10-08] MEDS ORDERED: DIPHTH,PERTUSS(ACELL),TET 0.5 ML DISP.SYRIN IM ONE (10:00)
[2020-10-08] MEDS: OXYTOCIN 20 UNITS in 0.9% NS 20 UNIT/1,000 ML INFUS.BAG IV SCH (11:41)
[2020-10-08] MEDS: ACETAMINOPHEN 325 MG TABLET (FP) PO PRN ×3 (11:48→22:20)
[2020-10-08] MEDS: SIMETHICONE 80 MG TAB.CHEW (FP) PO PRN ×3 (11:49→22:21)
[2020-10-08] MEDS: IBUPROFEN 600 MG TABLET (FP) PO PRN ×3 (11:49→22:21)
[2020-10-09] MEDS: IBUPROFEN 600 MG TABLET (FP) PO PRN ×3 (07:46→18:20)
[2020-10-09] MEDS: SIMETHICONE 80 MG TAB.CHEW (FP) PO PRN ×3 (07:46→18:20)
[2020-10-09] MEDS: ACETAMINOPHEN 325 MG TABLET (FP) PO PRN ×3 (07:47→18:21)
[2020-10-09] MEDS: FERROUS SO4 325 MG TABLET (FP) PO SCH ×2 (09:11→21:09)
[2020-10-09] MEDS: PRENATAL VITAMINS W/ FOLIC ACID TABLET (FP) PO SCH (09:11)
[2020-10-10] MEDS: IBUPROFEN 600 MG TABLET (FP) PO PRN (04:09)
[2020-10-10] MEDS: ACETAMINOPHEN 325 MG TABLET (FP) PO PRN (04:10)
[2020-10-10 07:53] LABS: BASO % 0.4 % (0-2.0); EOS % 4.2 % (0-4.5); HEMATOCRIT 28.8 % (32.4-45.2); HEMOGLOBIN 9.2 GM/dL (10.7-15.3); LYMPH % 30.7 % (8-40); MCH 30.2 pg (25.7-33.7); MCHC 31.8 g/dl (32.0-36.0); MEAN CELL VOLUME 95.1 fl (80-96); MEAN PLT VOLUME 9.8 fl (7.5-11.1); MONO % 7.9 % (3.8-10.2); NEUT % 56.8 % (42.8-82.8); PLATELET COUNT 213 K/MM3 (134-434); RBC 3.03 M/mm3 (3.60-5.2); RDW 14.5 % (11.6-15.6); WHITE BLOOD COUNT 5.3 K/mm3 (4.0-10.0)
[2020-10-10] MEDS: FERROUS SO4 325 MG TABLET (FP) PO SCH (11:01)
[2020-10-10] MEDS: PRENATAL VITAMINS W/ FOLIC ACID TABLET (FP) PO SCH (11:01)
[2020-10-10 13:12] VITALS: BP 112/71; PULSE 95; TEMP 98.1
== END 2020-10-10 13:12 | disposition home or self-care (01) | DRG 540 ==
LOC: JLDR 05:50 → J3W 11:16
PROVIDERS: ADMIT Obstetrics & Gynecology; ATTEND Obstetrics & Gynecology
PROC: 10D00Z1 Extraction of Products of Conception, Low, Open Approach (ICD-10-PCS; principal; 2020-10-07)
PROC: 0UL70ZZ Occlusion of Bilateral Fallopian Tubes, Open Approach (ICD-10-PCS; 2020-10-07)
DX: O34.211 Maternal care for low transverse scar from previous cesarean delivery (principal); O24.420 Gestational diabetes mellitus in childbirth, diet controlled; O99.03 Anemia complicating the puerperium; D64.89 Other specified anemias; Z3A.39 39 weeks gestation of pregnancy; Z37.0 Single live birth; Z30.2 Encounter for sterilization
CPT/HCPCS: 36415; 82962; 85025; 88302-TC; 88307-TC; 90715; G0008; Q2036

== ENCOUNTER 2022-12-11 22:54 | Emergency (ER) | payer OTHER ==
[2022-12-11 23:05] VITALS: BP 103/63; PULSE 100; RESP 18; TEMP 98; BMI 32.5
[2022-12-11] MEDS ORDERED: MAG HYDROX/AL HYDROX/SIMETH 30 ML UNIT-DOSE CUP PO ONE (23:49)
[2022-12-11] MEDS ORDERED: FAMOTIDINE 20 MG/50 ML IVPB 20 MG/50 ML MG IVPB ONE (23:49)
[2022-12-11] MEDS ORDERED: ACETAMINOPHEN 500 MG TABLET (FP) PO ONE (23:49)
[2022-12-12] MEDS ORDERED: MAG HYDROX/AL HYDROX/SIMETH 30 ML UNIT-DOSE CUP ONE (00:20)
[2022-12-12] MEDS ORDERED: ACETAMINOPHEN 325 MG TABLET (FP) ONE (00:20)
[2022-12-12] MEDS ORDERED: FAMOTIDINE 20 MG/50 ML IVPB 20 MG/50 ML MG IVPB ONE (00:21)
[2022-12-12 00:28] LABS: PH,URINE 5.5 (5.0-8.0); URINE APPEARANCE CLOUDY; URINE BILIRUBIN NEGATIVE (NEGATIVE); URINE COLOR YELLOW; URINE GLUCOSE (UA) NEGATIVE (NEGATIVE); URINE KETONE NEGATIVE (NEGATIVE); URINE LEUK ESTERASE NEGATIVE (NEGATIVE); URINE NITRITE NEGATIVE (NEGATIVE); URINE PROTEIN NEGATIVE (NEGATIVE); URINE UROBILINOGEN 0.2 mg/dL (0.2-1.0)
[2022-12-12 01:24] LABS: ALBUMIN 4.5 g/dl (3.4-5.0); CALCIUM 9.2 mg/dL (8.5-10.1)
[2022-12-12 01:25] LABS: BLOOD UREA NITROGEN 7.4 mg/dL (7-18); MAGNESIUM 2.1 mg/dL (1.8-2.4)
[2022-12-12 01:28] LABS: CREATININE 0.6 mg/dL (0.55-1.3)
[2022-12-12 01:29] LABS: BILIRUBIN,TOTAL 0.2 mg/dL (0.2-1); TOT PROT 8.2 g/dl (6.4-8.2)
[2022-12-12] MEDS ORDERED: METOCLOPRAMIDE HCL INJECTION 10 MG/2 ML VIAL IVPB ONE (02:04)
[2022-12-12] MEDS ORDERED: METOCLOPRAMIDE HCL INJECTION 10 MG/2 ML VIAL ONE (02:09)
== END 2022-12-12 03:10 | disposition home or self-care (01) ==
LOC: JER 22:54
PROC: 3E033GC Introduction of Other Therapeutic Substance into Peripheral Vein, Percutaneous Approach (ICD-10-PCS; principal; 2022-12-11)
PROC: 3E033GC Introduction of Other Therapeutic Substance into Peripheral Vein, Percutaneous Approach (ICD-10-PCS; 2022-12-11)
DX: R07.89 Other chest pain (principal)
CPT/HCPCS: 0241U-QW; 36415; 71046-TC-FY; 80053; 81003; 83690; 83735; 84484; 84703; 87077; 87086; 87186; 93005; 93010; 99284-25

== ENCOUNTER 2024-05-11 17:03 | Emergency (ER) | payer OTHER ==
[2024-05-11 17:17] VITALS: BP 130/93; PULSE 79; RESP 18; TEMP 98.3; BMI 29.2
[2024-05-11] MEDS ORDERED: predniSONE 20 MG TABLET (UD) ONE (18:23)
[2024-05-11] MEDS ORDERED: CYCLOBENZAPRINE HCL 10 MG TABLET (FP) ONE (18:23)
[2024-05-11] MEDS ORDERED: LIDOCAINE 4% PATCH TP ONE (18:23)
[2024-05-11] MEDS ORDERED: ACETAMINOPHEN 500 MG TABLET (FP) ONE (18:23)
[2024-05-11] MEDS: LIDOCAINE 4% PATCH TP ONE (18:27)
[2024-05-11] MEDS: predniSONE 20 MG TABLET (UD) PO ONE (18:27)
[2024-05-11] MEDS: ACETAMINOPHEN 500 MG TABLET (FP) PO ONE (18:27)
[2024-05-11] MEDS: CYCLOBENZAPRINE HCL 10 MG TABLET (FP) PO ONE (18:27)
[2024-05-11] MEDS ORDERED: LIDOCAINE PATCH REMOVAL MC SCH (22:00)
== END 2024-05-11 18:52 | disposition home or self-care (01) ==
LOC: JERFT 17:03
DX: M25.512 Pain in left shoulder (principal); M54.2 Cervicalgia
CPT/HCPCS: 73030-TC-LT-FY; 99283-25